=== PATIENT | male | born 1990 | race Caucasian/White ===

== ENCOUNTER 2021-07-03 12:00 | Emergency (ER) | payer MEDICAID ==
[~2021-07-03] VITALS: Ht 188 cm; Wt 190.5 kg
[2021-07-03 12:39] VITALS: BP 154/111
--- NOTE | 2021-07-03 12:51 | NUR ---
MICHELE. HANDED ON URINE CUP.
[2021-07-03 13:43] LABS: BASOPHILS % (AUTO) 0.7 % (0.0-2.0); EOSINOPHILS % (AUTO) 0.7 % (0.0-4.0); HEMATOCRIT 40.9 % (36-52); HEMOGLOBIN 13.3 g/dL (12.0-18.0); LYMPHOCYTES # (AUTO) 2.1 K/uL (2.0-11.5); MEAN CORPUSCULAR HEMOGLOBIN 31 pg (27-31); MEAN CORPUSCULAR HGB CONC 33 g/dL (33-37); MEAN CORPUSCULAR VOLUME 96.7 fL (80-94); MONOCYTES # (AUTO) 0.4 K/uL (0.8-1.0); MONOCYTES % (AUTO) 6.1 % (1.7-9.3); NEUTROPHILS # (AUTO) 4.3 K/uL (1.8-7.7); NEUTROPHILS % (AUTO) 62.5 % (42.2-75.2); PLATELET COUNT (AUTO) 175 K/uL (140-450); RED BLOOD CELL COUNT(AUTO) 4.23 MIL/uL (4.20-6.10); RED CELL DISTRIBUTION WIDTH 15.2 % (11.6-13.7); WHITE BLOOD COUNT (AUTO) 6.9 K/uL (4.8-10.8)
[2021-07-03 14:04] LABS: ALBUMIN 3.6 g/dL (3.4-5.0); ANION GAP 11.9 (8-16); CARBON DIOXIDE 27.5 mmol/L (21-32); CREATININE 1.4 mg/dL (0.6-1.3); POTASSIUM 4.4 mmol/L (3.5-5.1); TOTAL BILIRUBIN 1.4 mg/dL (0.0-1.0)
[2021-07-03] MEDS ORDERED: ONDA4TAB PO (14:41)
[2021-07-03] MEDS ORDERED: LOPE-289 PO (14:41)
[2021-07-03] MEDS ORDERED: FAMO-90 PO (14:41)
--- NOTE | 2021-07-03 15:21 | NUR ---
NOVEL SWAB COLLECTED. DROPPED OFF AT LAB.
[2021-07-03 15:23] VITALS: BP 154/111
--- NOTE | 2021-07-03 15:24 | NUR ---
Patient discharged with v/s stable. Written and verbal after care instructions given and explained. Patient requested copies of ekg and lab work. All paperwork provided. Patient alert, oriented and verbalized understanding of instructions. Wheel Chair Assisted with to car. All questions addressed prior to discharge. ID band removed. Patient advised to follow up with PMD. Rx of FAMOTIDINE, LOPERAMIDE, ONDANSENTRON given. Patient educated on indication of medication including possible reaction and side effects. Opportunity to ask questions provided and answered.
== END 2021-07-03 15:24 | disposition home or self-care (01) ==
LOC: MED 12:00
DX: R11.2 Nausea with vomiting, unspecified (principal); R19.7 Diarrhea, unspecified; R06.02 Shortness of breath; J45.909 Unspecified asthma, uncomplicated; Z88.0 Allergy status to penicillin; Z88.6 Allergy status to analgesic agent
CPT/HCPCS: 36415; 71045; 80053; 83690; 83880; 84484; 85025; 93005; 99285